=== PATIENT | male | born 1965 | race Caucasian/White ===

== ENCOUNTER → 2016-06-10 | Outpatient (CLI) | payer OTHER ==
--- NOTE | 2016-06-10 14:08 | Diagnostic Imaging Report ---
Indication: Right upper quadrant pain Technique: Le-scale and duplex images of the upper abdomen were obtained Comparison: None Findings: . Gallbladder is unremarkable, without stones, wall thickening, nor pericholecystic fluid. Sonographic Curry's sign is negative. Common bile duct measures 3 mm in diameter. No intrahepatic biliary ductal dilatation. Liver demonstrates normal echogenicity, no focal abnormality. Portal vein and hepatic veins are patent.. Pancreas is unremarkable. Spleen is unremarkable. Left kidney measures 11 cm in length. Right kidney measures 9.6 cm length. Both kidneys demonstrate normal echogenicity. There is no hydronephrosis. No focal abnormality. . Non-aneurysmal abdominal aorta. Impression: Negative
== END | disposition home or self-care (01) ==
LOC: ULS 10:01
DX: R10.11 Right upper quadrant pain (principal)
CPT/HCPCS: 76700

== ENCOUNTER 2019-01-28 09:27 | Outpatient (CLI) | payer OTHER ==
--- NOTE | 2019-01-28 13:41 | Diagnostic Imaging Report ---
Indication:Scrotal pain Technique: Real time grayscale and duplex Doppler imaging of the scrotum performed. Comparison: None Findings: The size, contour, and echogenicitiy of the testis appear normal bilaterally. There is no testicular mass or evidence of torsion. There is good doppler evidence of blood flow within both testes. Epididimi are symmetric. There is a right epididymal cyst measuring approximately 7 mm. There are bilateral hydroceles moderate in size right sided greater than left. There is a probable varicocele present bilaterally as demonstrated on color Doppler flow imaging on Valsalva. Right testis measures 3.8 x 2.3 x 2.9 cm. Left testis 4.5 x 2.3 x 3.0 cm. IMPRESSION: Moderate bilateral hydroceles. No evidence of testicular mass or torsion. Slightly asymmetric testicle size with the larger right testis. Small bilateral varicoceles Right epididymal cyst.
== END 2019-01-28 11:27 | disposition home or self-care (01) ==
LOC: ULS 09:27
DX: N50.82 Scrotal pain (principal); L72.0 Epidermal cyst; I86.1 Scrotal varices
CPT/HCPCS: 76870